=== PATIENT | female | born 1965 | race Caucasian/White ===

== ENCOUNTER → 2019-04-13 | Outpatient (CLI) | payer MEDICAID ==
--- NOTE | 2019-04-14 09:14 | MM ---
Reason for exam: screening (asymptomatic). Last mammogram was performed 2 years and 4 months ago. History: Patient is postmenopausal and has history of high-risk lesion on a previous biopsy at age 47. Family history of breast cancer in paternal aunt at age 50 and breast cancer in paternal grandmother at age 50. High risk US LT VAD breast biopsy of the left breast, April 27, 2013. Benign left breast aspiration of the left breast, March 2012. Took hormonal contraceptives for 15 years beginning at age 17. Physical Findings: A clinical breast exam by your physician is recommended on an annual basis and results should be correlated with mammographic findings. MG 3D Screening Mammo W/Cad Bilateral CC and MLO view(s) were taken. Prior study comparison: December 23, 2016, mammogram, performed at [facility]. April 14, 2014, bilateral MG screening mammo w CAD. April 13, 2013, CAD bilateral diagnostic mammogram. The breast tissue is extremely dense which could obscure a lesion on mammography. Benign appearing bilateral calcifications. No suspicious abnormality. No significant changes when compared with prior studies. ASSESSMENT: Benign, BI-RAD 2 RECOMMENDATION: Routine screening mammogram of both breasts in 1 year.
== END | disposition home or self-care (01) ==
LOC: RADMAMWWP 11:37
PROVIDERS: ATTEND Obstetrics & Gynecology
DX: Z12.31 Encounter for screening mammogram for malignant neoplasm of breast (principal); Z80.3 Family history of malignant neoplasm of breast
CPT/HCPCS: 77063; 77067

== ENCOUNTER → 2019-04-14 | Outpatient (CLI) | payer MEDICAID ==
[2019-04-14 12:18] LABS: T4, Free (Free Thyroxine) 1.2 ng/dL (0.80-1.80)
[2019-04-14 12:51] LABS: LDL Cholesterol,Calculated 80.4 mg/dL (0.0-131.0); VLDL Calculation 10.6 mg/dL (5.00-40.00)
== END | disposition home or self-care (01) ==
LOC: LABWHC1 07:03
PROVIDERS: ATTEND Obstetrics & Gynecology
DX: R53.83 Other fatigue (principal); R63.5 Abnormal weight gain; N64.52 Nipple discharge; Z78.0 Asymptomatic menopausal state
CPT/HCPCS: 36415; 80061; 82947; 84146; 84439; 84443

== ENCOUNTER → 2019-06-06 | Outpatient (CLI) | payer MEDICAID ==
--- NOTE | 2019-06-07 07:16 | MR ---
EXAMINATION TYPE: MR hip RT wo con DATE OF EXAM: 06/06/2019 COMPARISON: Outside right hip March 07, 2019. HISTORY: Right hip pain per order. Pain and limited movement increasing in severity when walking for 2 years per patient. Standard multiplanar, multisequence MRI departmental protocol Multiplanar, multisequence images of the pelvis focusing on the right hip were acquired. FINDINGS: There is symmetric mild to moderate axial joint space loss with symmetric small to moderate -sized joint effusion seen bilaterally. Femoral head shapes are maintained bilaterally. Mild symmetri c spurring is seen. Bone marrow signal intensity is preserved without suspicious edema or serpiginous low T1 signal in either femoral head. There is some increased fluid signal along the greater trochan ters bilaterally. No suspicious groin hernia or adenopathy is seen bilaterally. Muscle bulk is mainta ined bilaterally. Uterus is surgically absent or markedly atrophic. No suspicious bowel dilatation or pelvic fluid vince ection. IMPRESSION: Mild to moderate degenerative changes right hip as detailed above fairly symmetric in allan earance to the opposite left hip.
== END | disposition home or self-care (01) ==
LOC: RADMRIMAIN 16:32
PROVIDERS: ATTEND Orthopaedic Surgery
DX: M16.11 Unilateral primary osteoarthritis, right hip (principal)

== ENCOUNTER 2019-11-04 17:33 | Emergency (ER) | payer MEDICAID, OTHER ==
[2019-11-04 17:39] VITALS: RESP 18; TEMP 97.7
--- NOTE | 2019-11-04 18:26 | XR ---
EXAMINATION TYPE: XR wrist complete LT DATE OF EXAM: 11/04/2019 COMPARISON: NONE HISTORY: Pain TECHNIQUE: 4 views FINDINGS: Carpal bones appear intact. I see no fracture nor dislocation. Joint spaces appear normal. Scaphoid is intact. Metacarpals are intact. IMPRESSION: Negative left wrist exam.
--- NOTE | 2019-11-04 18:59 | ED ---
Fall HPI - General Chief Complaint: Fall Stated Complaint: Fall,Wrist Injury Time Seen by Provider: 11/04/19 17:41 Source: patient Mode of arrival: ambulatory - History of Present Illness Initial Comments: Patient is a 54-year-old female presenting to the emergency Department with complaints of left wrist pain as well as mouth pain after tripping and falling just prior to arrival. Patient states she was walking out to her car and tripped on a piece of sidewalk falling forward. Patient states she put out her left wrist to break her fall and she also hit her chin, bottom lip as well as her front teeth. Patient denies having a headache, nausea, vomiting, blurry vision. Patient denies previous history of left wrist surgeries or trauma. Patient is also complaining of mild left knee pain. Patient is able to ambulate well. Patient has no other complaints at this time. Upon arrival to the ER, vital signs are stable. - Related Data Home Medications Medication Instructions Recorded Confirmed Biotin (Unknown Dose) 1 tab PO DAILY 11/04/19 11/04/19 Co Q-10 (Unknown Dose) 1 tab PO DAILY 11/04/19 11/04/19 Omeprazole (Unknown Dose) 1 tab PO DAILY 11/04/19 11/04/19 Allergies Allergy/AdvReac Type Severity Reaction Status Date / Time erythromycin base Allergy Rash/Hives Verified 11/04/19 17:40 [From [facility]] Review of Systems ROS Statement: Those systems with pertinent positive or pertinent negative responses have been documented in the HPI. ROS Other: All systems not noted in ROS Statement are negative. Past Medical History Past Medical History: GERD/Reflux Additional Past Medical History / Comment(s): IBS, migraines. History of Any Multi-Drug Resistant Organisms: MRSA Date of last positivie culture/infection: 06/09 MDRO Source:: Forehead Past Surgical History: Breast Surgery, Section, Cholecystectomy, Hysterectomy, Tubal Ligation Additional Past Surgical History / Comment(s): Breast biopsy. Past Anesthesia/Blood Transfusion Reactions: Motion Sickness, Postoperative Nausea & Vomiting (PONV) Past Psychological History: No Psychological Hx Reported Smoking Status: Former smoker Past Alcohol Use History: Occasional Past Drug Use History: None Reported - Past Family History Mother Family Medical History: No Reported History General Exam - General Exam Comments Initial Comments: GENERAL: Well-appearing, well-nourished and in no acute distress. HEAD: Atraumatic, normocephalic. EYES: Pupils equal round and reactive to light, extraocular movements intact, sclera anicteric, conjunctiva are normal. ENT: TMs normal, nares patent, oropharynx clear without exudates. Moist mucous membranes. There is a mild abrasion to the chin. A small laceration to the bottom lip. There is some mild swelling of the upper lip. The upper teeth feel firm in place. NECK: Normal range of motion, supple without lymphadenopathy or JVD. LUNGS: Breath sounds clear to auscultation bilaterally and equal. No wheezes rales or rhonchi. HEART: Regular rate and rhythm without murmurs, rubs or gallops. ABDOMEN: Soft, nontender, normoactive bowel sounds. No guarding, no rebound. No masses appreciated. : Deferred EXTREMITIES: Pain with palpation of the left wrist. Patient has slightly decreased range of motion in all directions from pain. There is no swelling present. Neurova scular intact. Patient also has a mild abrasion to the left anterior knee. Patient has full knee range of motion and normal ambulation. NEUROLOGICAL: Normal speech, normal gait. PSYCH: Normal mood, normal affect. SKIN: Warm, Dry, normal turgor. Limitations: no limitations Course Vital Signs 11/04/19 11/04/19 17:33 19:16 Temperature 97.7 F Pulse Rate 82 64 Respiratory 18 18 Rate Blood Pressure 178/106 144/73 O2 Sat by Pulse 98 98 Oximetry Medical Decision Making - Medical Decision Making Patient is a 54-year-old female presenting with left wrist pain and mouth pain after falling on cement prior to arrival. X-rays of the left wrist reveal no acute fractures dislocations. Patient does have a superficial laceration to the bottom lip that is not requiring sutures. I discussed these findings with patient. Patient is stable for discharge at this time. Patient will take Tylenol or Motrin for pain relief. Patient will also follow-up with her dentist concerning her mouth pain. She is agreement with this plan of care. Return parameters were discussed with the patient she verbalized understanding. Case discussed with Dr. Patterson. Disposition Clinical Impression: Fall, Left wrist pain, Mouth pain Disposition: HOME SELF-CARE Condition: Stable Instructions (If sedation given, give patient instructions): Wrist Sprain (ED) Additional Instructions: Please return to the Emergency Department if symptoms worsen or any other concerns. Follow-up with PCP if left wrist does not improve for reevaluation in one to 2 weeks. May take Tylenol or Motrin for symptom relief. Follow-up with dentist regarding teeth pain. Is patient prescribed a controlled substance at d/c from ED?: No Referrals: Stefan Cantrell MD [Primary Care Provider] - 1-2 days
[2019-11-04 19:18] VITALS: BP 144/73; PULSE 64
== END 2019-11-04 19:18 | disposition home or self-care (01) ==
LOC: EC 17:33
DX: M25.532 Pain in left wrist (principal); S01.511A Laceration without foreign body of lip, initial encounter; S80.212A Abrasion, left knee, initial encounter; S00.81XA Abrasion of other part of head, initial encounter; K21.9 Gastro-esophageal reflux disease without esophagitis; K58.9 Irritable bowel syndrome, unspecified; Z87.891 Personal history of nicotine dependence; Z88.1 Allergy status to other antibiotic agents; Z79.899 Other long term (current) drug therapy; Z86.14 Personal history of Methicillin resistant Staphylococcus aureus infection; W01.0XXA Fall on same level from slipping, tripping and stumbling without subsequent striking against object, initial encounter; Y93.01 Activity, walking, marching and hiking; Y92.480 Sidewalk as the place of occurrence of the external cause; Y92.89 Other specified places as the place of occurrence of the external cause
CPT/HCPCS: 99283

== ENCOUNTER 2019-11-07 10:30 | Day surgery (SDC) | payer MEDICAID ==
[2019-11-04 11:34] VITALS: BMI 25.0
[~2019-11-07 10:30] MED LIST: LACTATED RINGERS 1,000 ML IV SCH
[2019-11-07 10:53] VITALS: TEMP 97.5
[2019-11-07] MEDS ORDERED: LIDOCAINE 1% 20 ML VIAL (10MG/ML) FOR IV START INTRADERMA ONE (10:54)
[2019-11-07] MEDS ORDERED: PROPOFOL 10 MG/ML 20 ML VIAL IV ONE (11:38)
[2019-11-07] MEDS ORDERED: SODIUM CHLORIDE 0.9% 500 ML 500 ML IV ONE (12:17)
--- NOTE | 2019-11-07 12:20 | P.PCN ---
Date of Procedure: 11/07/19 Description of Procedure: Brief history: Patient is a pleasant scheduled for an elective upper endoscopy as well as colonoscopy as a part of evaluation of GERD and change in bowel habits. She reports last colonoscopy approximately 10 years ago. Family history of ulcerative colitis in her mother. Reports of reflux as well as altered bowel function with frequent loose stool alternating with constipation. Procedure performed: Esophagogastroduodenoscopy with biopsy Colonoscopy with biopsy and polypectomy Estimated blood loss: Minimal. Preoperative diagnosis: GERD, change in bowel habits, Last colonoscopy in 10 years ago Anesthesia: MAC Procedure: After informed consent was obtained from the patient was brought into the endoscopy unit and IV sedation was administered by anesthesia under continuous monitoring. Initially upper endoscopy was done. The Olympus GF 190 video endoscope was inserted into the mouth and esophagus intubated without any difficulty and was gradually advanced into the stomach and duodenum and carefully examined. The bulb and second part of the duodenum appeared normal, With biopsies taken to rule out celiac sprue. The scope was then withdrawn into the stomach adequately insufflated with air and upon careful examination the antrum and body, cardia and fundus appeared normal, except for some mild punctate erythema in the antrum and body suggestive of mild gastritis with biopsies taken. The scope was then withdrawn into the esophagus. The GE junction was located at 35 cm to the incisors, with a 3 cm hiatal hernia noted. It appeared regular with no erythema erosions or ulcerations. Rest of the esophagus appeared normal. Patient tolerated the procedure well. At this time the patient continued to remain sedation. Initial digital rectal examination was normal. Olympus CF 190 video colonoscope was then inserted into the rectum and gradually advanced to the cecum without any difficulty. Careful examination was performed as the scope was gradually being withdrawn. The prep was excellent. The cecum, ascending colon, transverse colon, descending colon, sigmoid colon and rectum appeared normal, with biopsies taken of the right and left colon in the setting of altered bowel function. Terminal ileum was intubated and appeared normal with biopsies taken. Diminutive 2 mm splenic flexure polyp removed with cold forceps. Diminutive 2 mm sigmoid colon polyp removed with cold forcep polypectomy. Retroflexion was performed in the rectum and no lesions were noted, with moderate internal hemorrhoids noted. Patient tolerated the procedure well. Impression: 1. Mild gastritis antrum and body, biopsied. Moderate size hiatal hernia. Biopsies of the duodenum. 2. Diminutive splenic flexure and sigmoid polyps removed with cold forceps. Moderate internal hemorrhoids. Random biopsies taken of the terminal ileum, rig ht colon and left colon in the setting of altered bowel function. Recommendations: Findings of this examination were discussed with the patient as well as her family. Okay to resume diet. Okay to resume medications. Await pathology from biopsies and polypectomy. Recommend repeat colonoscopy in 5 years pending pathology from polypectomies.
[2019-11-07 12:40] VITALS: BP 120/78; PULSE 65; RESP 17
== END 2019-11-07 13:22 | disposition home or self-care (01) ==
LOC: ORWHC2ENDO 10:30
PROVIDERS: ATTEND Internal Medicine
DX: K21.9 Gastro-esophageal reflux disease without esophagitis (principal); K44.9 Diaphragmatic hernia without obstruction or gangrene; D12.5 Benign neoplasm of sigmoid colon; D12.3 Benign neoplasm of transverse colon; K64.8 Other hemorrhoids; G43.909 Migraine, unspecified, not intractable, without status migrainosus; K08.89 Other specified disorders of teeth and supporting structures; K58.9 Irritable bowel syndrome, unspecified; Z88.1 Allergy status to other antibiotic agents; Z79.899 Other long term (current) drug therapy; Z87.898 Personal history of other specified conditions; Z87.891 Personal history of nicotine dependence; Z98.890 Other specified postprocedural states; Z90.710 Acquired absence of both cervix and uterus; Z90.49 Acquired absence of other specified parts of digestive tract; Z83.79 Family history of other diseases of the digestive system
CPT/HCPCS: 88305; 45380; 43239; J2704

== ENCOUNTER → 2020-05-03 | Outpatient (CLI) | payer MEDICAID ==
--- NOTE | 2020-05-08 11:03 | MM ---
Reason for exam: screening (asymptomatic). Last mammogram was performed 1 year and 1 month ago. History: Patient is postmenopausal and has history of high-risk lesion on a previous biopsy at age 47. Family history of breast cancer in paternal aunt at age 50 and breast cancer in paternal grandmother at age 50. High risk US LT VAD breast biopsy of the left breast, April 27, 2013. Benign left breast aspiration of the left breast, March 2012. Took hormonal contraceptives for 15 years beginning at age 17. Physical Findings: A clinical breast exam by your physician is recommended on an annual basis and results should be correlated with mammographic findings. MG 3D Screening Mammo W/Cad Bilateral CC and MLO view(s) were taken. Prior study comparison: April 13, 2019, bilateral MG 3d screening mammo w/cad. December 23, 2016, mammogram, performed at [facility]. The breast tissue is heterogeneously dense. This may lower the sensitivity of mammography. Stable diffuse bilateral punctate calcifications. Oil cyst calcifications on the right. No significant changes when compared with prior studies. ASSESSMENT: Benign, BI-RAD 2 RECOMMENDATION: Routine screening mammogram of both breasts in 1 year.
== END | disposition home or self-care (01) ==
LOC: RADMAMWWP 08:21
PROVIDERS: ATTEND Obstetrics & Gynecology
DX: Z12.31 Encounter for screening mammogram for malignant neoplasm of breast (principal); Z80.3 Family history of malignant neoplasm of breast
CPT/HCPCS: 77063; 77067

== ENCOUNTER → 2021-03-28 | Outpatient (CLI) | payer MEDICAID ==
[2021-03-28 11:16] LABS: Chol/HDL Ratio 2.45
[2021-03-28 11:17] LABS: African American GFR (CKD) 82.8 (60.0-200.0); Albumin 4.9 g/dL (3.80-4.90); Albumin/Globulin Ratio 2.58 (1.60-3.17); Anion Gap 8.5 mmol/L (4.00-12.00); BUN/Creat Ratio 17.78 Ratio (12.00-20.00); Calcium 9.9 mg/dL (8.7-10.3); Carbon Dioxide 28.5 mmol/L (21.6-31.8); Globulin 1.9 g/dL (1.6-3.3); Non-African American GFR(CKD) 71.5 (60.0-200.0); Potassium 4.4 mmol/L (3.5-5.5); Total Bilirubin 0.8 mg/dL (0.2-1.2); Total Protein 6.8 g/dL (6.2-8.2)
[2021-03-28 13:21] LABS: Basophils # (A) 0.04 X 10*3/uL (0.00-0.10); Basophils % (A) 0.5 %; Eosinophils # (A) 0.18 X 10*3/uL (0.04-0.35); Eosinophils % (A) 2.2 %; HCT 43.8 % (37.2-46.3); HGB 14.7 g/dL (12.0-15.0); Lymphocytes # (A) 2.36 X 10*3/uL (0.90-5.00); Lymphocytes % (A) 28.3 %; MCHC 33.6 g/dL (32.0-37.0); MCV 95.2 fL (80.0-97.0); Monocytes # (A) 0.55 X 10*3/uL (0.20-1.00); Monocytes % (A) 6.6 %; Neutrophils # (A) 5.21 X 10*3/uL (1.80-7.70); Neutrophils % (A) 62.3 %; Platelet Count 301 X 10*3/uL (140-440); WBC 8.35 X 10*3/uL (4.50-10.00)
== END | disposition home or self-care (01) ==
LOC: LABWHC1 06:55
PROVIDERS: ATTEND Nurse Practitioner Adult Health
DX: Z00.00 Encounter for general adult medical examination without abnormal findings (principal); K21.9 Gastro-esophageal reflux disease without esophagitis; G47.00 Insomnia, unspecified; N95.1 Menopausal and female climacteric states; G43.009 Migraine without aura, not intractable, without status migrainosus
CPT/HCPCS: 36415; 80053; 80061; 82306; 82607; 84443; 85025

== ENCOUNTER 2021-05-20 07:40 | Observation (INO) | payer MEDICAID ==
[2021-05-20] MEDS ORDERED: NITROGLYCERIN OINT 1 INCH/GM PACKET TOPICAL STA (08:03)
[2021-05-20] MEDS ORDERED: ASPIRIN 81 MG PO STA (08:03)
--- NOTE | 2021-05-20 08:07 | ED ---
General Adult HPI - General Chief complaint: Chest Pain Stated complaint: Chest Pain Time Seen by Provider: 05/20/21 07:58 Source: patient, RN notes reviewed Mode of arrival: ambulatory Limitations: no limitations - History of Present Illness Initial comments: Patient is a pleasant 55-year-old female presenting to the emergency Department with complaints of chest heaviness. Onset of symptoms was close to 2 weeks ago. Discomfort has been mild. Patient does have occasional palpitations. Patient feels nauseated this morning. No dyspnea. No history of similar symptoms previously. A whalen states symptoms are not necessarily exertional. No leg pain or leg swelling. - Related Data Home Medications Medication Instructions Recorded Confirmed ALPRAZolam [Xanax] 0.25 - 0.5 mg PO HS PRN 05/20/21 05/20/21 Eletriptan [Relpax] 40 mg PO DAILY PRN 05/20/21 05/20/21 Omeprazole 20 mg PO HS 05/20/21 05/20/21 Allergies Allergy/AdvReac Type Severity Reaction Status Date / Time erythromycin base Allergy Rash/Hives Verified 05/20/21 09:09 [From [facility]] Review of Systems ROS Statement: Those systems with pertinent positive or pertinent negative responses have been documented in the HPI. ROS Other: All systems not noted in ROS Statement are negative. Constitutional: Denies: fever Eyes: Denies: eye pain ENT: Denies: ear pain Respiratory: Denies: cough, dyspnea Cardiovascular: Reports: as per HPI, chest pain, palpitations Endocrine: Denies: fatigue Gastrointestinal: Reports: nausea. Denies: abdominal pain, vomiting Genitourinary: Denies: dysuria Musculoskeletal: Denies: back pain Skin: Denies: rash Neurological: Denies: weakness Past Medical History Past Medical History: GERD/Reflux Additional Past Medical History / Comment(s): IBS, migraines. History of Any Multi-Drug Resistant Organisms: MRSA Date of last positivie culture/infection: 06/09 MDRO Source:: Forehead Past Surgical History: Breast Surgery, Section, Cholecystectomy, Hysterectomy, Tubal Ligation Additional Past Surgical History / Comment(s): Breast biopsy. Past Anesthesia/Blood Transfusion Reactions: Motion Sickness, Postoperative Nausea & Vomiting (PONV) Past Psychological History: No Psychological Hx Reported Smoking Status: Former smoker Past Alcohol Use History: Rare Past Drug Use History: None Reported - Past Family History Mother Family Medical History: No Reported History General Exam Limitations: no limitations General appearance: alert, in no apparent distress Head exam: Present: normocephalic Eye exam: Present: normal appearance Neck exam: Present: normal inspection Respiratory exam: Present: normal lung sounds bilaterally Cardiovascular Exam: Present: regular rate, normal rhythm, normal heart sounds, other (Occasional premature beat) Expanded Peripheral pulses: 2+: Radial (R), Radial (L), Posterior Tibialis (R), Posterior Tibialis (L) GI/Abdominal exam: Present: soft. Absent: tenderness Extremities exam: Present: normal inspection. Absent: pedal edema, calf tenderness Neurological exam: Present: alert Psychiatric exam: Present: normal affect, normal mood Skin exam: Present: normal color Course Vital Signs 05/20/21 05/20/21 07:43 08:47 Temperature 97.5 F L Pulse Rate 74 60 Respiratory 18 18 Rate Blood Pressure 151/75 121/77 O2 Sat by Pulse 100 96 Oximetry - Reevaluation(s) Reevaluation #1: 05/20/21 08:06 Monitor shows normal sinus rhythm with occasional PVCs. Patient is placed on monitored who evaluate for potential arrhythmia the patient with palpitations and chest pain. Patient does have PVCs that correlate with her symptoms of palpitations. EKG Findings - EKG Comments: EKG Findings:: Normal sinus rhythm with rate of 66. PVC present. ID 168. QRS 84. QT 390. QTC 408. Normal axis. Septal Q waves. No acute ST change. Medical Decision Making - Medical Decision Making Patient reevaluated and resting comfortably in bed. Patient updated on results and plan. Case was discussed with Dr. Obrien, covering Dr. chavez who will admit. - Lab Data Result diagrams: 05/20/21 08:12 05/20/21 08:12 Lab Results 05/20/21 05/20/21 05/20/21 Range/Units 08:12 08:12 08:12 WBC 7.3 (3.8-10.6) k/uL RBC 4.43 (3.80-5.40) m/uL Hgb 14.1 (11.4-16.0) gm/dL Hct 40.7 (34.0-46.0) % MCV 92.0 (80.0-100.0) fL MCH 31.8 (25.0-35.0) pg MCHC 34.6 (31.0-37.0) g/dL RDW 12.4 (11.5-15.5) % Plt Count 280 (150-450) k/uL MPV 7.6 Neutrophils % 64 % Lymphocytes % 29 % Monocytes % 4 % Eosinophils % 1 % Basophils % 1 % Neutrophils # 4.7 (1.3-7.7) k/uL Lymphocytes # 2.1 (1.0-4.8) k/uL Monocytes # 0.3 (0-1.0) k/uL Eosinophils # 0.1 (0-0.7) k/uL Basophils # 0.0 (0-0.2) k/uL PT 9.9 (9.0-12.0) sec INR 0.9 (<1.2) APTT 24.0 (22.0-30.0) sec Sodium 142 (137-145) mmol/L Potassium 4.0 (3.5-5.1) mmol/L Chloride 107 (98-107) mmol/L Carbon Dioxide 26 (22-30) mmol/L Anion Gap 9 mmol/L BUN 11 (7-17) mg/dL Creatinine 0.65 (0.52-1.04) mg/dL Est GFR (CKD-EPI)AfAm >90 (>60 ml/min/1.73 sqM) Est GFR (CKD-EPI)NonAf >90 (>60 ml/min/1.73 sqM) Glucose 93 (74-99) mg/dL Calcium 9.9 (8.4-10.2) mg/dL Magnesium 2.0 (1.6-2.3) mg/dL Total Bilirubin 0.5 (0.2-1.3) mg/dL AST 22 (14-36) U/L ALT 16 (4-34) U/L Alkaline Phosphatase 81 (38-126) U/L Troponin I (0.000-0.034) ng/mL Total Protein 7.0 (6.3-8.2) g/dL Albumin 4.6 (3.5-5.0) g/dL 05/20/21 Range/Units 08:12 WBC (3.8-10.6) k/uL RBC (3.80-5.40) m/uL Hgb (11.4-16.0) gm/dL Hct (34.0-46.0) % MCV (80.0-100.0) fL MCH (25.0-35.0) pg MCHC (31.0-37.0) g/dL RDW (11.5-15.5) % Plt Count (150-450) k/uL MPV Neutrophils % % Lymphocytes % % Monocytes % % Eosinophils % % Basophils % % Neutrophils # (1.3-7.7) k/uL Lymphocytes # (1.0-4.8) k/uL Monocytes # (0-1.0) k/uL Eosinophils # (0-0.7) k/uL Basophils # (0-0.2) k/uL PT (9.0-12.0) sec INR (<1.2) APTT (22.0-30.0) sec Sodium (137-145) mmol/L Potassium (3.5-5.1) mmol/L Chloride (98-107) mmol/L Carbon Dioxide (22-30) mmol/L Anion Gap mmol/L BUN (7-17) mg/dL Creatinine (0.52-1.04) mg/dL Est GFR (CKD-EPI)AfAm (>60 ml/min/1.73 sqM) Est GFR (CKD-EPI)NonAf (>60 ml/min/1.73 sqM) Glucose (74-99) mg/dL Calcium (8.4-10.2) mg/dL Magnesium (1.6-2.3) mg/dL Total Bilirubin (0.2-1.3) mg/dL AST (14-36) U/L ALT (4-34) U/L Alkaline Phosphatase (38-126) U/L Troponin I <0.012 (0.000-0.034) ng/mL Total Protein (6.3-8.2) g/dL Albumin (3.5-5.0) g/dL - Radiology Data Radiology results: image reviewed (Chest x-ray reveals no acute) Disposition Clinical Impression: Chest pain Disposition: ADMITTED IP TO THIS [facility] Is patient prescribed a controlled substance at d/c from ED?: No Referrals: Trisha Moreno NPC [Family Provider] - 1-2 days Decision Time: 09:16
[2021-05-20 08:29] LABS: Basophils % (A) 1 %; Eosinophils # (A) 0.1 k/uL (0-0.7); Eosinophils % (A) 1 %; HCT 40.7 % (34.0-46.0); HGB 14.1 gm/dL (11.4-16.0); Lymphocytes # (A) 2.1 k/uL (1.0-4.8); Lymphocytes % (A) 29 %; MCH 31.8 pg (25.0-35.0); MCHC 34.6 g/dL (31.0-37.0); Mean Platelet Volume 7.6; Monocytes # (A) 0.3 k/uL (0-1.0); Monocytes % (A) 4 %; Neutrophils # (A) 4.7 k/uL (1.3-7.7); Neutrophils % (A) 64 %; Platelet Count 280 k/uL (150-450); RBC 4.43 m/uL (3.80-5.40); RDW 12.4 % (11.5-15.5); WBC 7.3 k/uL (3.8-10.6)
[2021-05-20 08:35] LABS: INR 0.9 (<1.2); Prothrombin Time 9.9 sec (9.0-12.0)
[2021-05-20 08:37] LABS: ALT 16 U/L (4-34); AST 22 U/L (14-36); African American GFR (CKD) >90 (>60 ml/min/1.73 sqM); Albumin 4.6 g/dL (3.5-5.0); Alkaline Phosphatase 81 U/L (38-126); Anion Gap 9 mmol/L; Blood Urea Nitrogen 11 mg/dL (7-17); Calcium 9.9 mg/dL (8.4-10.2); Carbon Dioxide 26 mmol/L (22-30); Chloride 107 mmol/L (98-107); Glucose 93 mg/dL (74-99); Non-African American GFR(CKD) >90 (>60 ml/min/1.73 sqM); Sodium 142 mmol/L (137-145); Total Bilirubin 0.5 mg/dL (0.2-1.3)
--- NOTE | 2021-05-20 08:41 | XR ---
EXAMINATION TYPE: XR chest 2V DATE OF EXAM: 05/20/2021 COMPARISON: NONE TECHNIQUE: PA and lateral views submitted. HISTORY: Chest FINDINGS: The lungs are clear and there is no pneumothorax, pleural effusion, or focal pneumonia. Heart size normal. No overt failure. Biapical pleural thickening. Mild hyperinflation. Degenerative change of th e spine. IMPRESSION: 1. No acute process. Mild hyperinflation correlate for COPD.
[2021-05-20] MEDS ORDERED: NITROGLYCERIN SL TABS 0.4 MG TAB SUBLINGUAL PRN (09:16)
[2021-05-20] MEDS ORDERED: ACETAMINOPHEN TAB 325 MG TAB PO PRN (10:57)
[2021-05-20] MEDS ORDERED: NALOXONE 0.4 MG/ML 1 ML VIAL IV PRN (10:57)
--- NOTE | 2021-05-20 11:00 | P.HPIM ---
History of Present Illness H&P Date: 05/20/21 Chief Complaint: palpitations, chest pressure 55-year-old woman with no significant medical history outside of acid reflux presented with palpitations and chest heaviness. Patient says her symptoms started approximately 2 weeks ago, but as of yesterday she started to feel a dditional chest discomfort as well as some radiation into the left upper shoulder and down the arm which prompted her concern and her medical evaluation in the ER. Patient says that's she has had some nausea associated with the symptoms. She denies any exertional chest pain, positional chest pain, prandial relationship to the chest pain. She describes her sensation as a pressure in the center of her chest. She has never had any heart attacks before. She also reports that she has feelings as if her heart is skipping beats. She denies fevers, chills, cough, dyspnea, abdominal pain, diarrhea, constipation, dysuria, numbness/as. In the emergency room, patient was noted to be afebrile, 121/77, heart rate 60, 96% room air. EKG and telemetry demonstrated multiple PVCs, no ischemic changes to the ST-T segments. Review of Systems All Systems reviewed and pertinent positives and negatives noted in HPI, all other symptoms are negative Past Medical History Past Medical History: GERD/Reflux Additional Past Medical History / Comment(s): IBS, migraines. History of Any Multi-Drug Resistant Organisms: MRSA Date of last positivie culture/infection: 06/09 MDRO Source:: Forehead Past Surgical History: Breast Surgery, Section, Cholecystectomy, Hysterectomy, Tubal Ligation Additional Past Surgical History / Comment(s): Breast biopsy. Past Anesthesia/Blood Transfusion Reactions: Motion Sickness, Postoperative Nausea & Vomiting (PONV) Past Psychological History: No Psychological Hx Reported Smoking Status: Former smoker Past Alcohol Use History: Rare Past Drug Use History: None Reported - Past Family History Mother Family Medical History: No Reported History Medications and Allergies Home Medications Medication Instructions Recorded Confirmed Type ALPRAZolam [Xanax] 0.25 - 0.5 mg PO HS PRN 05/20/21 05/20/21 History Eletriptan [Relpax] 40 mg PO DAILY PRN 05/20/21 05/20/21 History Omeprazole 20 mg PO HS 05/20/21 05/20/21 History Allergies Allergy/AdvReac Type Severity Reaction Status Date / Time erythromycin base Allergy Rash/Hives Verified 05/20/21 09:09 [From [facility]] Physical Exam Osteopathic Statement: *. No significant issues noted on an osteopathic structural exam other than those noted in the History and Physical/Consult. Vitals: Vital Signs Temp Pulse Resp BP Pulse Ox 05/20/21 08:47 60 18 121/77 96 05/20/21 07:43 97.5 F L 74 18 151/75 100 Intake and Output 05/19/21 05/20/21 05/20/21 22:59 06:59 14:59 Other: Weight 72.575 kg Gen: awake, alert HEENT: normocephalic, atraumatic, good hearing acuity, moist mucous membranes Resp: good air exchange, breathing comfortably with no accessory muscle use, clear to auscultation bilaterally without wheezes or crackles CVS: good distal perfusion x 4, regular rate and rhythm without murmurs, occasional skipped beats GI: soft, NTTP, ND, appropriate bowel sounds : no SPT, no CVAT, riojas catheter not present MSK: no pitting edema, no clubbing Neuro: non-focal, moving all extremities Psych: cooperative, euthymic mood Results CBC & Chem 7: 05/20/21 08:12 05/20/21 08:12 Assessment and Plan Assessment: Chest pain, atypical Premature ventricular contractions -Admit to observation, telemetry -Cardiology consult -Trend troponins -EKG/nitro when necessary -Echo, pending -Initiate metoprolol 12.5 mg twice a day -Aspirin daily for primary prophylaxis -Lipid panel, A1c, TSH -We'll hold off on starting statin based on lab work GERD without esophagitis -Tums when necessary Enoxaparin for DVT PPx Full Code
[2021-05-20] MEDS: NITROGLYCERIN OINT 1 INCH/GM PACKET TOPICAL SCH ×3 (13:03→23:01)
--- NOTE | 2021-05-20 14:09 | P.CRDCN ---
History of Present Illness History of present illness: HISTORY OF PRESENTING ILLNESS This is a pleasant 55-year-old female past medical history significant for GERD. 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 We have been asked to see in consultat ion for chest pain. Patient states that over the past 2 weeks has been having a "fluttering chest pain feeling". She states it is located in the center of her chest, it is nonradiating, nonexertional. She states it comes and goes and lasts less than 5 minutes. She denies any aggravating factors or alleviating factors. She states sometimes she does feel like she has to rest. Over the past 2 days her symptoms have been getting worse so she decided to present to the emergency department. She does have associated shortness of breath. She denies lower extremity edema, fatigue, weakness, lightheadedness, syncope, nausea, or vomiting, or diaphoresis. She denies symptoms of orthopnea or PND. She denies history of coronary artery disease, [place], hypertension, stroke, diabetes, hyperlipidemia. She states that she was a former smoker and quit 2 years ago. She denies alcohol or illicit drug use. Her family history includes her parents having high blood pressure and she states that her mother was diagnosed with Takotsubo cardiomyopathy. Current home medications include Xanax when necessary, Relpax when necessary, omeprazole 20 mg nightly DIAGNOSTICS EKG reveals sinus rhythm, heart rate 66, PVCs, no significant STT wave abnormalities Chest xray mild hyperinflation, no acute cardiopulmonary process.. Laboratory reviewed, CBC unremarkable, Sodium 142, K 4.0, BUN 11, Scr 0.65, Magnesium 2.0, Troponin negative x2, covid-19 negative REVIEW OF SYSTEMS At the time of my exam: CONSTITUTIONAL: Denies fever or chills. CARDIOVASCULAR: +chest pain, +palpitations, shortness of breath, orthopnea, PND RESPIRATORY: Denies cough. GASTROINTESTINAL: Denies abdominal pain, diarrhea, constipation, nausea or vomiting. MUSCULOSKELETAL: Denies myalgias. NEUROLOGIC: Denies numbness, tingling, headacbe or weakness. ENDOCRINE: Denies fatigue, weight change, polydipsia or polyurina. GENITOURINARY: Denies burning, hematuria or urgency with micturation. HEMATOLOGIC: Denies history of anemia or bleeding. PHYSICAL EXAMINATION Blood pressure 109/70 heart rate 63 afebrile and maintaining oxygen saturation 96% on room air CONSTITUTIONAL: No apparent distress. HEENT: Head is normocephalic. Pupils are equal, round. Sclerae anicteric. Mucous membranes of the mouth are moist. No JVD. No carotid bruit. CHEST EXAMINATION: Lungs are clear to auscultation. No chest wall tenderness is noted on palpation or with deep breathing. HEART EXAMINATION: Regular rate and rhythm. S1, S2 heard. No murmurs, gallops or rub. ABDOMEN: Soft, nontender. Positive bowel sounds. EXTREMITIES: 2+ peripheral pulses, no lower extremity edema and no calf tenderness. SKIN: intact NEUROLOGIC EXAMINATION: Patient is awake, alert and oriented x3. ASSESSMENT Chest pain, atypical, no ischemia noted on EKG, troponin negative x 2. History of GERD PLAN An acute coronary event is unlikely given no EKG evidence of ischemia and negative cardiac enzymes x 2 Obtain 2D echocardiogram and doppler study to assess cardiac structure and function. If 3rd troponin negative, will Perform stress echocardiogram test to assess for stress induced cardiac ischemia. If abnormal will consider coronary angiography. NPO after midnight Lipid panel, TSH and hemoglobin A1c ordered Further recommendations based on clinical course. Thank you kindly for this consultation. Nurse Practitioner note has been reviewed, I agree with a documented findings and plan of care. Patient was seen and examined. Past Medical History Past Medical History: GERD/Reflux Additional Past Medical History / Comment(s): Hiatal hernia, IBS, migraines History of Any Multi-Drug Resistant Organisms: MRSA Date of last positivie culture/infection: 06/09 MDRO Source:: Forehead Past Surgical History: Breast Surgery, Section, Cholecystectomy, Hysterectomy, Tubal Ligation Additional Past Surgical History / Comment(s): EGD, colonoscopy, endometrial ablation, hysterectomy with L oophorectomy, breast biopsy. Past Anesthesia/Blood Transfusion Reactions: Motion Sickness, Postoperative Nausea & Vomiting (PONV) Smoking Status: Former smoker - Past Family History Mother Family Medical History: COPD Additional Family Medical History / Comment(s): Ulcerative colitis. Father Family Medical History: Hypertension Additional Family Medical History / Comment(s): Pancreatitis. Medications and Allergies Home Medications Medication Instructions Recorded Confirmed Type ALPRAZolam [Xanax] 0.25 - 0.5 mg PO HS PRN 05/20/21 05/20/21 History Eletriptan [Relpax] 40 mg PO DAILY PRN 05/20/21 05/20/21 History Omeprazole 20 mg PO HS 05/20/21 05/20/21 History Allergies Allergy/AdvReac Type Severity Reaction Status Date / Time erythromycin base Allergy Rash/Hives Verified 05/20/21 09:09 [From E-Mycin] Physical Exam Vitals: Vital Signs Temp Pulse Resp BP Pulse Ox 05/20/21 11:17 62 18 101/67 98 05/20/21 11:00 64 18 100/60 96 05/20/21 10:00 64 18 112/77 96 05/20/21 09:00 62 18 113/78 96 05/20/21 08:47 60 18 121/77 96 05/20/21 07:43 97.5 F L 74 18 151/75 100 Intake and Output 05/19/21 05/20/21 05/20/21 22:59 06:59 14:59 Other: Weight 72.575 kg Results 05/20/21 08:12 05/20/21 08:12 Cardiac Enzymes 05/20/21 05/20/21 Range/Units 08:12 08:12 AST 22 (14-36) U/L Troponin I <0.012 (0.000-0.034) ng/mL Coagulation 05/20/21 Range/Units 08:12 PT 9.9 (9.0-12.0) sec APTT 24.0 (22.0-30.0) sec CBC 05/20/21 Range/Units 08:12 WBC 7.3 (3.8-10.6) k/uL RBC 4.43 (3.80-5.40) m/uL Hgb 14.1 (11.4-16.0) gm/dL Hct 40.7 (34.0-46.0) % Plt Count 280 (150-450) k/uL Comprehensive Metabolic Panel 05/20/21 Range/Units 08:12 Sodium 142 (137-145) mmol/L Potassium 4.0 (3.5-5.1) mmol/L Chloride 107 (98-107) mmol/L Carbon Dioxide 26 (22-30) mmol/L BUN 11 (7-17) mg/dL Creatinine 0.65 (0.52-1.04) mg/dL Glucose 93 (74-99) mg/dL Calcium 9.9 (8.4-10.2) mg/dL AST 22 (14-36) U/L ALT 16 (4-34) U/L Alkaline Phosphatase 81 (38-126) U/L Total Protein 7.0 (6.3-8.2) g/dL Albumin 4.6 (3.5-5.0) g/dL Current Medications Generic Name Dose Route Start Last Admin Trade Name Freq PRN Reason Stop Dose Admin Acetaminophen 650 mg 05/20/21 10:57 Acetaminophen Tab 325 Mg Tab PO Q6HR PRN Mild Pain or Fever > 100.5 Aspirin 81 mg 05/21/21 09:00 Aspirin 81 Mg PO DAILY [facility] Enoxaparin Sodium 40 mg 05/21/21 09:00 Enoxaparin 40 Mg/0.4 Ml Syringe SQ DAILY [facility] Metoprolol Tartrate 12.5 mg 05/20/21 21:00 Metoprolol Tartrate 12.5 Mg Tab PO BID [facility] Naloxone HCl 0.2 mg 05/20/21 10:57 Naloxone 0.4 Mg/Ml 1 Ml Vial IV Q2M PRN Opioid Reversal Nitroglycerin 0.4 mg 05/20/21 09:16 Nitroglycerin Sl Tabs 0.4 Mg Tab SUBLINGUAL Q5M PRN Chest Pain Nitroglycerin 1 inch 05/20/21 12:00 Nitroglycerin Oint 1 Inch/Gm Packet TOPICAL Q6HR [facility] Pantoprazole Sodium 40 mg 05/20/21 21:00 Pantoprazole 40 Mg Tablet PO HS [facility] Intake and Output 05/19/21 05/20/21 05/20/21 22:59 06:59 14:59 Other: Weight 72.575 kg Patient Weight 05/21/21 06:59 Weight 72.575 kg 05/20/21 08:12 05/20/21 08:12
[2021-05-20] MEDS ORDERED: ALPRAZolam 0.5 MG TAB PO PRN (16:29)
[2021-05-20] MEDS ORDERED: IBUPROFEN 200 MG TAB PO STA (20:11)
[2021-05-20] MEDS: METOPROLOL TARTRATE 12.5 MG TAB PO SCH (20:57)
[2021-05-20] MEDS ORDERED: PANTOPRAZOLE 40 MG TABLET PO SCH (21:00)
[2021-05-21] MEDS: NITROGLYCERIN OINT 1 INCH/GM PACKET TOPICAL SCH ×2 (06:25→12:25)
[2021-05-21] MEDS ORDERED: ASPIRIN 325 MG TAB PO SCH (09:00)
[2021-05-21] MEDS ORDERED: ENOXAPARIN 40 MG/0.4 ML SYRINGE SQ SCH (09:00)
[2021-05-21] MEDS ORDERED: ASPIRIN 81 MG PO SCH (09:00)
[2021-05-21 09:19] LABS: Basophils # (A) 0.04 X 10*3/uL (0.00-0.10); Basophils % (A) 0.5 %; Eosinophils # (A) 0.14 X 10*3/uL (0.04-0.35); Eosinophils % (A) 1.8 %; HCT 40.2 % (37.2-46.3); HGB 13.6 g/dL (12.0-15.0); Lymphocytes # (A) 2.46 X 10*3/uL (0.90-5.00); Lymphocytes % (A) 32.5 %; MCH 31.9 pg (27.0-32.0); MCHC 33.8 g/dL (32.0-37.0); MCV 94.1 fL (80.0-97.0); Mean Platelet Volume 10.6 fL (9.5-12.2); Monocytes # (A) 0.49 X 10*3/uL (0.20-1.00); Monocytes % (A) 6.5 %; Neutrophils # (A) 4.43 X 10*3/uL (1.80-7.70); Neutrophils % (A) 58.4 %; Platelet Count 258 X 10*3/uL (140-440); RBC 4.27 X 10*6/uL (4.10-5.20); RDW 12.9 % (11.5-14.5); WBC 7.58 X 10*3/uL (4.50-10.00)
[2021-05-21] MEDS: METOPROLOL TARTRATE 12.5 MG TAB PO SCH (10:29)
--- NOTE | 2021-05-21 10:47 | ECHOF ---
Referral Reason:LV function chest pain MEASUREMENTS -------- HEIGHT: 167.6 cm WEIGHT: 72.6 kg BP: RVIDd: 3.1 cm (< 3.3) IVSd: 1.2 cm (0.6 - 1.1) LVIDd: 4.7 cm (3.9 - 5.3) LVPWd: 1.3 cm (0.6 - 1.1) IVSs: 1.5 cm LVIDs: 2.8 cm LVPWs: 1.6 cm LAESV Index (A-L): 25.75 ml/m Ao Diam: 2.8 cm (2.0 - 3.7) AV Cusp: 1.9 cm (1.5 - 2.6) LA Diam: 2.7 cm (2.7 - 3.8) MV E Pool: 0.76 m/s MV DecT: 252 ms MV A Pool: 0.52 m/s MV E/A Ratio: 1.45 FINDINGS -------- Sinus rhythm with extra systolic beats. This was a technically difficult study with suboptimal apical views. The left ventricular size is normal. There is mild concentric left ventricular hypertrophy. Overa ll left ventricular systolic function is low-normal with, an EF between 50 - 55 %. The right ventricle is normal in size. Normal LA size by volume 22+/-6 ml/m2. The right atrial size is normal. 5.0mg of Lumason was utilized for enhancement of images Interatrial and interventricular septum intact. There is mild aortic valve sclerosis. There is no evidence of aortic regurgitation. There is no e vidence of aortic stenosis. No mitral regurgitation. Mild tricuspid regurgitation present. There is no evidence of pulmonary hypertension. The right v entricular systolic pressure, as measured by Doppler, is {RVSP}. There is no pulmonic regurgitation present. The aortic root size is normal. Normal inferior vena cava with normal inspiratory collapse consistent with estimated right atrial pre ssure of 5 mmHg. There is no pericardial effusion. CONCLUSIONS -------- 1. The left ventricular size is normal. 2. There is mild concentric left ventricular hypertrophy. 3. Overall left ventricular systolic function is low-normal with, an EF between 50 - 55 %. 4. There is mild aortic valve sclerosis. 5. Mild tricuspid regurgitation present. SOAKER MEAT: Michelle Alvarez RDCS
--- NOTE | 2021-05-21 14:07 | P.PN ---
Subjective This is a pleasant 55-year-old female past medical history significant for GERD. 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 We have been asked to see in consultation for chest pain. Patient states that over the past 2 weeks has been having a "fluttering chest pain feeling". She states it is located in the center of her chest, it is nonradiating, nonexertional. She states it comes and goes and lasts less than 5 minutes. She denies any aggravating factors or alleviating factors. She states sometimes she does feel like she has to rest. Over the past 2 days her symptoms have been getting worse so she decided to present to the emergency department. She does have associated shortness of breath. She denies lower extremity edema, fatigue, weakness, lightheadedness, syncope, nausea, or vomiting, or diaphoresis. She denies symptoms of orthopnea or PND. She denies history of coronary artery disease, [place], hypertension, stroke, diabetes, hyperlipidemia. She states that she was a former smoker and quit 2 years ago. She denies alcohol or illicit drug use. Her family history includes her parents having high blood pressure and she states that her mother was diagnosed with Takotsubo cardiomyopathy. Current home medications include Xanax when necessary, Relpax when necessary, omeprazole 20 mg nightly. EKG reveals sinus rhythm, heart rate 66, PVCs, no significant STT wave abnormalities. Chest xray mild hyperinflation, no acute cardiopulmonary process. Laboratory reviewed, Troponin negative x3, covid-19 negative 05/21/21 Patient seen and examined at bedside, no acute distress, no further chest pain. She scheduled for a stress echocardiogram stress test today. Echocardiogram revealed ejection fraction of 50-55%, mild aortic valve sclerosis, mild tricuspid regurgitation. Blood pressure 103/71, heart rate 57, afebrile, maintaining oxygen saturations 99% on room air. Lab data reviewed, CBC unremarkable, BMP, Lipid panel and TSH not resulted yet. Telemetry reviewed, patient in sinus mechanism heart rate 50 to 60s, occasional PVCs. PHYSICAL EXAMINATION CONSTITUTIONAL: No apparent distress. HEENT: No JVD. Neck supple CHEST EXAMINATION: Lungs are clear to auscultation. No chest wall tenderness is noted on palpation or with deep breathing. HEART EXAMINATION: Regular rate and rhythm. S1, S2 heard. No murmurs, gallops or rub. ABDOMEN: Soft, nontender. Positive bowel sounds. EXTREMITIES: 2+ peripheral pulses, no lower extremity edema and no calf tenderness. NEUROLOGIC EXAMINATION: Patient is awake, alert and oriented x3. ASSESSMENT Chest pain, atypical, no ischemia noted on EKG, troponin negative x 3 History of GERD PLAN Stress echocardiogram completed, read by Dr. Saleh who states the stress echocardiogram was normal. Echocardiogram completed with no acute findings. From cardiology perspective, patient can be discharged home and follow-up with Dr. Saleh in the outpatient office. Thank you kindly for this consultation. Nurse Practitioner note has been reviewed, I agree with a documented findings and plan of care. Patient was seen and examined. Objective - Vital Signs Vital signs: Vital Signs Temp 97.9 F 05/21/21 07:00 Pulse 57 L 05/21/21 07:00 Resp 16 05/21/21 07:00 BP 103/71 05/21/21 07:00 Pulse Ox 99 05/21/21 07:00 Intake & Output 05/20/21 05/21/21 05/21/21 18:59 06:59 18:59 Intake Total 240 Balance 240 Weight 72.575 kg 72.57 kg Intake: Oral 240 Other: Voiding Method Toilet Toilet # Voids 2 2 - Labs CBC & Chem 7: 05/21/21 05:56 05/20/21 08:12
--- NOTE | 2021-05-21 14:16 | P.DS ---
Providers Date of admission: 05/20/21 09:16 Expected date of discharge: 05/21/21 Attending physician: Molly Garner MD Consults: 05/20/21 09:16 Consult Physician Urgent Consulting Provider: Júnior Hall Consult Reason/Comments: cp Do you want consulting provider notified?: Yes Primary care physician: Gumaro Naylor MD Hospital Course: 55-year-old woman with no significant medical history outside of acid reflux presented with palpitations and chest heaviness. Patient says her symptoms started approximately 2 weeks ago, but as of yesterday she started to feel zenaida tional chest discomfort as well as some radiation into the left upper shoulder and down the arm which prompted her concern and her medical evaluation in the ER. Patient says that's she has had some nausea associated with the symptoms. She denies any exertional chest pain, positional chest pain, prandial relationship to the chest pain. She describes her sensation as a pressure in the center of her chest. She has never had any heart attacks before. She also reports that she has feelings as if her heart is skipping beats. She denies fevers, chills, cough, dyspnea, abdominal pain, diarrhea, constipation, dysuria, numbness/as. In the emergency room, patient was noted to be afebrile, 121/77, heart rate 60, 96% room air. EKG and telemetry demonstrated multiple PVCs, no ischemic changes to the ST-T segments. Chest pain, atypical Premature ventricular contractions Patient admitted to observation with telemetry. Seen by cardiology. Pt had multiple PVCs on telemetry. Started on metoprolol. Cardiology recommended stress echo, which was done and negative. Risk facors of CAD were reviewed and meds titrated accordingly. Pt to f/u with PCP. GERD without esophagitis Anxiety - no changes to home meds. Assessment: Gen: awake, alert HEENT: normocephalic, atraumatic, good hearing acuity, moist mucous membranes Resp: good air exchange, breathing comfortably with no accessory muscle use, clear to auscultation bilaterally without wheezes or crackles CVS: good distal perfusion x 4, regular rate and rhythm without murmurs, occasional skipped beats GI: soft, NTTP, ND, appropriate bowel sounds : no SPT, no CVAT, riojas catheter not present MSK: no pitting edema, no clubbing Neuro: non-focal, moving all extremities Psych: cooperative, euthymic mood Patient Condition at Discharge: Good Plan - Discharge Summary Discharge Rx Participant: No New Discharge Prescriptions: New Metoprolol Tartrate [Lopressor] 12.5 mg PO BID #60 tab Continue Omeprazole 20 mg PO HS Eletriptan [Relpax] 40 mg PO DAILY PRN PRN Reason: Migraine Headache ALPRAZolam [Xanax] 0.25 - 0.5 mg PO HS PRN PRN Reason: Insomnia Discharge Medication List ALPRAZolam [Xanax] 0.25 - 0.5 mg PO HS PRN 05/20/21 [History] Eletriptan [Relpax] 40 mg PO DAILY PRN 05/20/21 [History] Omeprazole 20 mg PO HS 05/20/21 [History] Metoprolol Tartrate [Lopressor] 12.5 mg PO BID #60 tab 05/21/21 [Rx] Follow up Appointment(s)/Referral(s): Trisha Moreno NPC [Family Provider] - 1-2 days Wilton Saleh MD [STAFF PHYSICIAN] - 2 Weeks Discharge Disposition: HOME SELF-CARE
[2021-05-21 14:21] LABS: African American GFR (CKD) 95.5 (60.0-200.0); Anion Gap 5.3 mmol/L (4.00-12.00); BUN/Creat Ratio 12.5 Ratio (12.00-20.00); Calcium 9.6 mg/dL (8.7-10.3); Carbon Dioxide 29.7 mmol/L (21.6-31.8); Chol/HDL Ratio 2.41; LDL Cholesterol,Calculated 81.6 mg/dL (0.0-131.0); Non-African American GFR(CKD) 82.4 (60.0-200.0); Potassium 4.7 mmol/L (3.5-5.5); VLDL Calculation 11.4 mg/dL (5.00-40.00)
[2021-05-21 15:14] VITALS: BP 118/53; PULSE 65; RESP 18; TEMP 97.5
--- NOTE | 2021-05-21 17:13 | P.STRESS ---
- Stress Test Note Stress Test Results/Findings: Exam Performed: stress echo exercise Exam Date: 05/21/21 Reason for Exam: Chest Pain Height: 5 ft 6 in Weight: 72.57 kg Protocol: Hany Stage: 4 Duration of Exercise: 10:50 Resting Heart Rate: 60 Resting Blood Pressure: 112/63 Maximum Achieved Heart Rate: 143 Maximum Achieved Blood Pressure: 192/61 85% PMHR: 139 100% PMHR: 164 METS: 12.1 Technologist Comment: Stress Test Results/Findings: This is a 55-year-old female was admitted to the hospital with chest pain. Has history of hypertension and smoking and also symptoms of palpitations. Stress data: Blood pressure at rest is 112/63 with pulse rate of 60. Baseline EKG showed sinus rhythm with [place] interval and QRS duration with mild nonspecific ST-T changes. Patient walked on the Hany protocol for 10 minutes and 50 seconds achieving a maximum heart rate of 143 with a blood pressure 169/80. EKGs during and after exercise showed occasional PVCs, but no changes suggestive of ischemia, mild J-point depression with upsloping ST segments were noted. Echo data: Baseline echo images show normal wall motion and thickening. Exer cise echo images showed augmentation of wall motion and thickening in all the segments. Final impression: #1. Stress test is felt to be inconclusive because of baseline EKG changes. Patient however did not experience any chest pain. Occasional PVCs were noted. #2. Negative stress echo.
--- NOTE | 2021-05-23 11:14 | EST ---
Stress Test Results/Findings: Exam Performed: stress echo exercise Exam Date: 05/21/21 Reason for Exam: Chest Pain Height: 5 ft 6 in Weight: 72.57 kg Protocol: Hany Stage: 4 Duration of Exercise: 10:50 Resting Heart Rate: 60 Resting Blood Pressure: 112/63 Maximum Achieved Heart Rate: 143 Maximum Achieved Blood Pressure: 192/61 85% PMHR: 139 100% PMHR: 164 METS: 12.1 Technologist Comment: Stress Test Results/Findings: This is a 55-year-old female was admitted to the hospital with chest pain. Has history of hypertension and smoking and also symptoms of palpitations. Stress data: Blood pressure at rest is 112/63 with pulse rate of 60. Baseline EKG showed sinus rhythm with DE interval and QRS duration with mild nonspecific ST-T changes. Patient walked on the Hany protocol for 10 minutes and 50 seconds achieving a maximum heart rate of 143 with a blood pressure 169/80. EKGs during and after exercise showed occasional PVCs, but no changes suggestive of ischemia, mild J-point depression with upsloping ST segments were noted. Echo data: Baseline echo images show normal wall motion and thickening. Exercise echo images showed augmentation of wall motion and thickening in all the segments. Final impression: #1. Stress test is felt to be inconclusive because of baseline EKG changes. Patient however did not experience any chest pain. Occasional PVCs were noted. #2. Negative stress echo. MANDEEP
== END 2021-05-21 15:36 | disposition home or self-care (01) ==
LOC: EC 07:40 → 6NMEDSUR 09:16
PROVIDERS: ADMIT Internal Medicine; ATTEND Internal Medicine
DX: R07.89 Other chest pain (principal); I49.3 Ventricular premature depolarization; R00.2 Palpitations; R11.0 Nausea; R06.02 Shortness of breath; Z20.822 Contact with and (suspected) exposure to COVID-19; K21.9 Gastro-esophageal reflux disease without esophagitis; I35.8 Other nonrheumatic aortic valve disorders; F41.9 Anxiety disorder, unspecified; K44.9 Diaphragmatic hernia without obstruction or gangrene; K58.9 Irritable bowel syndrome, unspecified; Z88.1 Allergy status to other antibiotic agents; Z87.891 Personal history of nicotine dependence; Z90.721 Acquired absence of ovaries, unilateral; Z90.49 Acquired absence of other specified parts of digestive tract; Z86.69 Personal history of other diseases of the nervous system and sense organs; Z86.14 Personal history of Methicillin resistant Staphylococcus aureus infection; Z90.710 Acquired absence of both cervix and uterus; Z82.5 Family history of asthma and other chronic lower respiratory diseases; Z82.49 Family history of ischemic heart disease and other diseases of the circulatory system
CPT/HCPCS: 93005 ×2; 99285; 36415; 93306; 93351; 80061; 80053; 80048; 84443; 83735 ×2; 84484; 85025 ×2; 85610; 85730; 83036; 87635; 71046; G0378 ×2; Q9950

== ENCOUNTER → 2021-06-04 | Outpatient (CLI) | payer MEDICAID ==
--- NOTE | 2021-06-06 09:15 | MM ---
Reason for exam: screening (asymptomatic). Last mammogram was performed 1 year and 1 month ago. History: Patient is postmenopausal and has history of high-risk lesion on a previous biopsy at age 47. Family history of breast cancer in paternal aunt at age 50 and breast cancer in paternal grandmother at age 50. High risk US LT VAD breast biopsy of the left breast, April 27, 2013. Benign left breast aspiration of the left breast, March 2012. Took hormonal contraceptives for 15 years beginning at age 17. Physical Findings: A clinical breast exam by your physician is recommended on an annual basis and results should be correlated with mammographic findings. MG 3D Screening Mammo W/Cad Bilateral CC and MLO view(s) were taken. Prior study comparison: May 03, 2020, bilateral MG 3d screening mammo w/cad. April 13, 2019, bilateral MG 3d screening mammo w/cad. The breast tissue is heterogeneously dense. This may lower the sensitivity of mammography. ASSESSMENT: Negative, BI-RAD 1 RECOMMENDATION: Routine screening mammogram of both breasts in 1 year.
== END | disposition home or self-care (01) ==
LOC: RADMAMWWP 13:49
PROVIDERS: ATTEND Obstetrics & Gynecology
DX: Z12.31 Encounter for screening mammogram for malignant neoplasm of breast (principal); Z80.3 Family history of malignant neoplasm of breast; Z78.0 Asymptomatic menopausal state
CPT/HCPCS: 77063; 77067

== ENCOUNTER → 2021-08-18 | Outpatient (CLI) | payer MEDICAID ==
--- NOTE | 2021-08-19 03:35 | MR ---
EXAMINATION TYPE: MR foot LT wo/w con DATE OF EXAM: 08/18/2021 COMPARISON: None HISTORY: Soft tissue mass plantar aspect, base of 1st toe. CONTRAST: Standard multiplanar, multisequence MRI departmental protocol utilizing 7 mL intravenous Gadavist nati olinium contrast. The metatarsals appear intact. The toes appear intact. I see no focal bone destruction. The bones of the midfoot appear intact. The Achilles tendon is intact. Plantar fascia appears normal. The medial a nd lateral flexor tendons appear intact. On the STIR images there is a high signal subcutaneous mass on the plantar aspect of the first metata rsal head. This measures 22 x 12 mm. There is a small joint effusion at the first MP joint. I see no focal bone destruction. This lesion has low signal on T1 and shows a rim of enhancement with contrast . Lesion has high signal on T2 images and consistent with fluid. IMPRESSION: There is fluid containing thick walled mass on the plantar aspect of the first metatarsal head with w all enhancement. Small joint effusion at the first MP joint. This mass could be a synovial cyst.
== END | disposition home or self-care (01) ==
LOC: RADMRIMAIN 08:46
PROVIDERS: ATTEND Podiatrist Foot & Ankle Surgery
DX: R22.41 Localized swelling, mass and lump, right lower limb (principal)
CPT/HCPCS: 73720; A9585

== ENCOUNTER → 2022-05-28 | Outpatient (CLI) | payer MEDICAID ==
[2022-05-28 10:31] LABS: Basophils # (A) 0.05 X 10*3/uL (0.00-0.10); Basophils % (A) 0.6 %; Eosinophils # (A) 0.14 X 10*3/uL (0.04-0.35); Eosinophils % (A) 1.8 %; HCT 42.1 % (37.2-46.3); HGB 13.9 g/dL (12.0-15.0); Immature Grans, Automated 0.3 %; Lymphocytes # (A) 2.17 X 10*3/uL (0.90-5.00); Lymphocytes % (A) 27.6 %; Mean Platelet Volume 10.7 fL (9.5-12.2); Monocytes # (A) 0.49 X 10*3/uL (0.20-1.00); Monocytes % (A) 6.2 %; NRBC Per 100 WBC 0 /100 WBCS (0.0-0.0); Neutrophils # (A) 4.98 X 10*3/uL (1.80-7.70); Neutrophils % (A) 63.5 %; Platelet Count 270 X 10*3/uL (140-440); RBC 4.48 X 10*6/uL (4.10-5.20); RDW 13.3 % (11.5-14.5); WBC 7.85 X 10*3/uL (4.50-10.00)
[2022-05-28 11:06] LABS: ALT 18 U/L (8-44); AST 18 U/L (13-35); African American GFR (CKD) 82.3 (60.0-200.0); Albumin 4.8 g/dL (3.8-4.9); Albumin/Globulin Ratio 2.53 (1.60-3.17); Alkaline Phosphatase 70 U/L (41-126); BUN/Creat Ratio 14.33 Ratio (12.00-20.00); Blood Urea Nitrogen 12.9 mg/dL (9.0-27.0); Calcium 9.7 mg/dL (8.7-10.3); Carbon Dioxide 26.6 mmol/L (20.0-27.5); Chloride 105 mmol/L (96-109); Chol/HDL Ratio 2.57 Ratio; Globulin 1.9 g/dL (1.6-3.3); Glucose 91 mg/dL (70-110); LDL Cholesterol,Calculated 91.7 mg/dL (0.0-131.0); Potassium 4.9 mmol/L (3.5-5.5); Sodium 142 mmol/L (135-145); Total Protein 6.7 g/dL (6.2-8.2); VLDL Calculation 13.44 mg/dL (5.00-40.00)
== END | disposition home or self-care (01) ==
LOC: LABWHC1 06:57
PROVIDERS: ATTEND Internal Medicine
DX: E55.9 Vitamin D deficiency, unspecified (principal); R07.89 Other chest pain
CPT/HCPCS: 36415; 80053; 80061; 82306; 84443; 85025

== ENCOUNTER → 2022-06-03 | Outpatient (CLI) | payer MEDICAID ==
[2022-06-03 11:11] LABS: Prolactin 6.2 ng/mL (2.800-29.200); T4, Free (Free Thyroxine) 1.27 ng/dL (0.800-1.800)
== END | disposition home or self-care (01) ==
LOC: LABWHC1 07:04
PROVIDERS: ATTEND Obstetrics & Gynecology
DX: N64.52 Nipple discharge (principal)
CPT/HCPCS: 36415; 84146; 84439; 84443

== ENCOUNTER → 2022-06-09 | Outpatient (CLI) | payer MEDICAID ==
--- NOTE | 2022-06-10 08:08 | CA ---
Stress Echo Report Faina Richardson Age: 57 Gender: F : 1965 Exam Date: 06/09/2022 10:20 Exam Location: [facility] Ht (in): 66 Wt (lb): 150 Ordering Physician: Gumaro Naylor MD Referring Physician: Gumaro Naylor MD Senior Radiation Therapist: Michelle Alvarez RDCS Technologist Procedure CPT: Indication: R07.89 chest pressure ICD-9 Codes: Rhythm: Patient History: FAMILY HX OF HEART DISEASE, FORMER SMOKER 0.25 X 35 YEARS, QUIT 2 YEARS AGO. Cardiac Medications: BIOTIN, MULTIVITAMIN, VITAMIN C, VITAMIN D3, GINKO BILBOA, ZOLOFT, OMEPRAZOLE Medications in past 24 hours: Contrast: Stress Results Protocol: Hany Total dose(mL): Exercise Duration (min:sec): Max ST Depression (mm): Angina Score: Caba Score: METS: 12.3 Resting HR: 67 Resting BP: 107 / 64 Peak HR: 141 Peak BP: 181 / 73 Max Predicted HR: 162 87 % Max Predicted HR Target HR: 138 Double Product: [id number] Stress Summary: BP Response: Reason for Termination: Cardiac Symptoms: ECG Analysis Resting ECG: Stress ECG: Arrhythmia: Echo Analysis Resting Echo: Peak Echo Analysis: MEASUREMENTS (Male/Female) Normal Values CONCLUSIONS Patient underwent exercise stress echo with a Hany protocol treadmill stress test. Patient exercised into Stage 4 for a total of 12 minutes. Patient's maximum heart rate was 141 which represented 87 % age-predicted maximum heart rate. Stress EKG portion: At baseline patient's EKG showed normal sinus rhythm, normal axis, mild 0.[address] depression in the inferior and lateral leads with occasional PVCs. At peak exercise, EKG showed mild accentuation of baseline EKG abnormalities. Stress echo portion: 2-D echocardiogram was performed in the parasternal long, personal short, apical 2 and apical four-chamber views at rest, peak exercise and in recovery. At baseline, echocardiogram showed left ventricular ejection fraction 55 % without wall motion abnormalities. With peak exercise, echocardiogram shows improvement in left ventricular ejection fraction, increase contractility, decrease in left ventricular end systolic dimension without wall motion abnormalities consistent with a normal response to exercise. Conclusions: 1. Normal echo response to exercise without evidence of inducible ischemia. 2. Nonspecific EKG portion secondary baseline EKG abnormalities 3. Excellent exercise capacity. 4. Normal left ventricular ejection fraction 55% Dr. Sean Stewart DO (Electronically Signed) Final Date: 10 June 2022 08:07
== END | disposition home or self-care (01) ==
LOC: RADNMMAIN 09:47
PROVIDERS: ATTEND Internal Medicine
DX: R94.31 Abnormal electrocardiogram [ECG] [EKG] (principal)
CPT/HCPCS: 93351

== ENCOUNTER → 2022-06-30 | Outpatient (CLI) | payer MEDICAID ==
--- NOTE | 2022-06-30 16:30 | BD ---
EXAMINATION TYPE: Axial Bone Density DATE OF EXAM: 06/30/2022 COMPARISON: NONE CLINICAL HISTORY: 57 year old Female. ICD-10 CODE: M85.80 OTH DISRD OF BONE DENSITY AND STRUCTURE Height: 66 Weight: 153.9 FRAX RISK QUESTIONS: Alcohol (3 or more units per day): NO Family History (Parent hip fracture): no Glucocorticoids (More than 3mos): no (Ex: prednisone, prednisolone, methylprednisolone, dexamethasone, and hydrocortisone). History of Fracture in Adulthood: no Secondary Osteoporosis: 1. Type 1 Diabetes: no 2. Hyperthyroidism: no 3. Menopause before 45: no 4. Malnutrition: no 5. Chronic liver disease: no Rheumatoid Arthritis: no Current Tobacco Use: yes RISK FACTORS HISTORY OF: Surgery to Spine/Hip(right/left)/Wrist (right/left): no Family History of Osteoporosis: yes Active: yes Diet low in dairy products/other sources of calcium: yes Postmenopausal woman: yes If Premenopausal, do you have irregular periods: Take estrogen and/or progesterone medications: yes How lon years Lost more than 2 inches in height since high school: no MEDICATIONS: Additional History: EXAM MEASUREMENTS: Bone mineral densitometry was performed using the [employer]. Bone mineral density as measured about the Lumbar spine is: ----- L1-L4(G/cm2): 1.001 T Score Values are as follows: ----- L1: -1.3 ----- L2: -1.2 ----- L3: -1.4 ----- L4: -2.1 ----- L1-L4: -1.5 Bone mineral density : baseline Bone mineral density about the R hip (g/cm2): 0.772 Bone mineral density about the L hip (g/cm2): 0.771 T Score values are as follows: -----R Neck: -1.9 -----L Neck: -1.9 -----R Total: -1.9 -----L Total: -1.8 Bone mineral density : baseline FRAX%s: The graph provided illustrates a 9.8% chance for a major osteoporotic fx and a 1.8% chance fo r the hips probability for fx in 10 years time. IMPRESSION: Osteopenia (T Score between -2.5 and -1). There is slightly increased risk of fracture and the patient may be considered for treatment. Re-Screen 2-5 years. NOTE: T-SCORE=SD OF THE YOUNG ADULT MEAN.
--- NOTE | 2022-07-01 17:04 | MM ---
Reason for Exam: Screening (asymptomatic). Last mammogram was performed 1 year(s) and 1 month(s) ago. Patient History: Menarche at age 12. First Full-Term at age 27. Left ovary removed at age 45. Hysterectomy at age 45. Postmenopausal. Currently using Estrogen, starting at age 52. Hormonal Contraceptives for 5 years, 1 month, from age 17 until age 22. 03/2012, Benign Cyst Aspiration on the left side. 04/27/2013, High risk Core Biopsy on the left side. Paternal grandmother had breast cancer, age 50. Paternal aunt had breast cancer, age 50. Risk Values: Caitlin 5 year model risk: 1.8%. NCI Lifetime model risk: 10.0%. Prior Study Comparison: 04/13/2019 Bilateral Screening Mammogram, [facility]. 05/03/2020 Bilateral Screening Mammogram, [facility]. 06/04/2021 Bilateral Screening Mammogram, [facility]. Tissue Density: The breast tissue is heterogeneously dense. This may lower the sensitivity of mammography. Findings: Analyzed By CAD. Benign bilateral oil cyst calcifications. Global asymmetry posterior superior left and low view unchanged. No significant change from prior exams. Overall Assessment: Benign, BI-RAD 2 Management: Screening Mammogram of both breasts in 1 year. 1. Patient should continue monthly self breast exams. 2. A clinical breast exam by your physician is recommended on an annual basis. 3. This exam should not preclude additional follow-up of suspicious palpable abnormalities. Electronically signed and approved by: Ana De La Garza M.D. Radiologist
== END | disposition home or self-care (01) ==
LOC: RADMAMWWP 13:55
PROVIDERS: ATTEND Obstetrics & Gynecology
DX: Z12.31 Encounter for screening mammogram for malignant neoplasm of breast (principal); Z80.3 Family history of malignant neoplasm of breast; Z78.0 Asymptomatic menopausal state
CPT/HCPCS: 77063; 77067; 77080

== ENCOUNTER → 2022-07-29 | Outpatient (CLI) | payer MEDICAID ==
--- NOTE | 2022-07-29 11:16 | CT ---
EXAMINATION TYPE: CT soft tissue neck wo/w con DATE OF EXAM: 07/29/2022 COMPARISON: None HISTORY: Localized swelling, mass and lump, neck. Incidental finding from LDCT (lung) CT DLP: 744 mGycm CONTRAST: Patient injected with 70 ml mL of Isovue 300. TECHNIQUE: Axial images at 3 mm thick sections. Reconstructed images in the coronal plane and sagitt al plane are reviewed. FINDINGS: Limited CT sections are obtained the lung apices. The lung apices appear clear. CT neck: The torus tubarius and fossa of Rosenmuller are normal. Associate Merchant spaces are normal. Para nasal sinuses and mastoid air cells are clear. Note is made to left septal deviation posteriorly. Feliciano e right septal deviation may be present anteriorly. Parotid glands appear normal and symmetrical. Submandibular glands are normal. Parapharyngeal space s are normal. No suspicious adenopathy is evident. There are some scattered small lymph nodes in the submandibular regions bilaterally. The hypopharynx appears within normal limits. Vocal cord level appear symmetrical. There is a 0.5 cm hypodensity within the left lobe thyroid. There is an enlarged soft tissue density in the posterior right paratracheal region posterior to the inferior pole right lobe thyroid measuring 1.7 x 2.2 x 2.8 cm. This has more central hypodensity. Lym phadenopathy could be considered. This is below the hyoid bone. Thyroglossal duct cyst could be cons idered. This measures -4 Hounsfield units correlates with the finding identified on the low dose CT lung screening. This does have some punctate calcification peripherally and potentially can arise fro m the posterior right lobe thyroid. Ultrasound may provide additional information. Osseous structures are normal. IMPRESSIONS: 1. Complex cystlike structure posterior to the right thyroid lobe measuring 1.7 x 2.2 x 2.8 cm with s ome peripheral calcification. Thyroid cysts and thyroglossal duct cyst could be considered. Consider ultrasound for additional workup.
== END | disposition home or self-care (01) ==
LOC: RADCTMAIN 07:31
PROVIDERS: ATTEND Internal Medicine
DX: R22.1 Localized swelling, mass and lump, neck (principal)
CPT/HCPCS: 70492; Q9967

== ENCOUNTER → 2023-07-06 | Outpatient (CLI) | payer MEDICAID ==
--- NOTE | 2023-07-06 07:44 | MM ---
Reason for Exam: Screening (asymptomatic). Last screening mammogram was performed 12 month(s) ago. Patient History: Menarche at age 12. First Full-Term at age 27. Left ovary removed at age 45. Hysterectomy at age 45. Postmenopausal. Currently using Estrogen, starting at age 52. Hormonal Contraceptives for 5 years, 1 month, from age 17 until age 22. 03/2012, Benign Cyst Aspiration on the left side. 04/27/2013, High risk Core Biopsy on the left side. Paternal grandmother had breast cancer, age 50. Paternal aunt had breast cancer, age 50. Risk Values: Caitlin 5 year model risk: 1.8%. NCI Lifetime model risk: 9.8%. Prior Study Comparison: 05/03/2020 Bilateral Screening Mammogram, [facility]. 06/04/2021 Bilateral Screening Mammogram, [facility]. 06/30/2022 Bilateral MG 3D screening mammo w/cad, [facility]. Tissue Density: The breast tissue is heterogeneously dense. This may lower the sensitivity of mammography. Findings: Analyzed By CAD. Benign-appearing calcifications bilaterally. There is no suspicious group of microcalcifications or new suspicious mass in either breast. Overall Assessment: Negative, BI-RAD 1 Management: Screening Mammogram of both breasts in [address] [facility] will attempt to contact patient to return for supplemental views and ultrasound if indicated. Patient should continue monthly self-breast exams. A clinical breast exam by your physician is recommended on an annual basis. This exam should not preclude additional follow-up of suspicious palpable abnormalities. Note on Caitlin scores and lifetime risk: 1. A Caitlin score greater than 3% is considered moderate risk. If this is the case, consider specialist referral to assess eligibility for a risk reducing agent. 2. If overall lifetime risk for the development of breast cancer is 20% or higher, the patient may qualify for future screening with alternating mammogram and breast MRI. Electronically signed and approved by: Asher Bui DO
== END | disposition home or self-care (01) ==
LOC: RADMAMWWP 07:04
PROVIDERS: ATTEND Internal Medicine
DX: Z12.31 Encounter for screening mammogram for malignant neoplasm of breast (principal); Z78.0 Asymptomatic menopausal state; Z80.3 Family history of malignant neoplasm of breast
CPT/HCPCS: 77063; 77067

== ENCOUNTER → 2023-07-21 | Outpatient (CLI) | payer MEDICAID ==
[2023-07-21 11:30] LABS: Basophils # (A) 0.05 X 10*3/uL (0.00-0.10); Basophils % (A) 0.6 %; Eosinophils # (A) 0.15 X 10*3/uL (0.04-0.35); Eosinophils % (A) 1.9 %; HGB 13.9 d/dL (12.0-15.0); Lymphocytes # (A) 2.32 X 10*3/uL (0.90-5.00); Lymphocytes % (A) 28.8 %; MCH 31.4 pg (27.0-32.0); MCHC 33.1 d/dL (32.0-37.0); Mean Platelet Volume 10.3 FL (9.5-12.2); Monocytes % (A) 6.2 %; NRBC Per 100 WBC 0 X 10*3/uL (0.00-0.01); Neutrophils # (A) 5.02 X 10*3/uL (1.80-7.70); Neutrophils % (A) 62.4 %; Platelet Count 285 X 10*3/uL (140-440); RBC 4.42 X 10*6/uL (4.10-5.20); RDW 13.5 % (11.5-14.5); WBC 8.05 X 10*3/uL (4.50-10.00)
[2023-07-21 12:50] LABS: Chol/HDL Ratio 2.51 Ratio; LDL Cholesterol,Calculated 89.1 mg/dL (0.0-131.0); Magnesium 1.9 mg/dL (1.5-2.4); VLDL Calculation 16.72 mg/dL (5.00-40.00)
[2023-07-21 12:51] LABS: ALT 19 U/L (8-44); AST 20 U/L (13-35); Albumin 4.9 d/dL (3.8-4.9); Albumin/Globulin Ratio 2.72 Ratio (1.60-3.17); Alkaline Phosphatase 65 U/L (41-126); BUN/Creat Ratio 14.12 Ratio (12.00-20.00); Blood Urea Nitrogen 11.3 mg/dL (9.0-27.0); Calcium 9.8 mg/dL (8.7-10.3); Carbon Dioxide 26.7 mmol/L (21.6-31.8); Chloride 104 mmol/L (96-109); Globulin 1.8 d/dL (1.6-3.3); Glucose 93 mg/dL (70-110); Potassium 4.3 mmol/L (3.5-5.5); Sodium 141 mmol/L (135-145); Total Bilirubin 0.5 mg/dL (0.3-1.2); Total Protein 6.7 d/dL (6.2-8.2)
== END | disposition home or self-care (01) ==
LOC: LABWHC1 07:33
PROVIDERS: ATTEND Internal Medicine
DX: Z00.00 Encounter for general adult medical examination without abnormal findings (principal); Z11.59 Encounter for screening for other viral diseases; G43.009 Migraine without aura, not intractable, without status migrainosus; E55.9 Vitamin D deficiency, unspecified
CPT/HCPCS: 36415; 80053; 80061; 82306; 82607; 82746; 83735; 84443; 85025; 86803

== ENCOUNTER → 2023-10-19 | Outpatient (CLI) | payer MEDICAID ==
--- NOTE | 2023-10-19 09:24 | CTL ---
EXAMINATION TYPE: CT Low Dose Lung DATE OF EXAM ORDERED: 10/19/2023 HISTORY: halfway tobacco use. Lung cancer screening CT DLP: 69.[address] CTDI: 1.9 mGy Automated exposure control for dose reduction was used. SCREENING VISIT: First after baseline COMPARISON: Prior study July 15, 2022 TECHNIQUE: Low dose computed tomography scan was performed through the chest at 1 mm thick sections a nd reconstructed images in multiple planes at 1 mm and [address] DIAGNOSTIC QUALITY: Satisfactory FINDINGS: LUNG NODULES: Present, detailed below: A few scattered small nodules are redemonstrated. There is stable 3 mm subpleural calcified nodule on axial image 122 posterior left lung. Stable 2 to 3 mm right upper lobe peripheral nodule axial image 97. No new or enlarging greater than 5 mm noncalcified pulmonary nodules. LUNGS: COPD: Severity: Mild Fibrosis: Severity: None Lymph nodes: None Other findings: None RIGHT PLEURAL SPACE: Effusion: None Calcification: None Thickening: None Pneumothorax: None LEFT PLEURAL SPACE: Effusion: None Calcification: None Thickening: None Pneumothorax: None HEART: Heart Size: Normal Coronary Calcification: None Pericardial Effusion: None OTHER FINDINGS: Upper abdomen: Cholecystectomy clips are present. Persistent 4.1 cm thin-walled cyst in the right hep atic lobe axial image 57 series 5 and adjacent smaller round hypodense lesion. Bony thorax: None Supraclavicular region: Subcentimeter low dense left thyroid nodule axial image 3 series 5 redemonstr ated. Stable 1.5 cm low dense lesion posterior to the lower pole right thyroid just right of the proximal e sophagus axial image 4 could reflect enlarged lymph node. Other: None IMPRESSION: No new or enlarging greater than 5 mm noncalcified pulmonary nodules. CT LUNG RAD AND CT CHEST RECOMMENDATION: Lung-Rad 2 Benign Appearance or Behavior: Continue annual sc reening with LDCT in 12 months. S Modifier (other clinically significant findings): No suspicious new findings.
== END | disposition home or self-care (01) ==
LOC: RADCTMAIN 07:26
PROVIDERS: ATTEND Internal Medicine
DX: Z12.2 Encounter for screening for malignant neoplasm of respiratory organs (principal); F17.210 Nicotine dependence, cigarettes, uncomplicated
CPT/HCPCS: 71271

== ENCOUNTER → 2024-07-19 | Outpatient (CLI) | payer OTHER ==
[2024-07-19 10:20] LABS: HCT 42.5 % (37.2-46.3); HGB 14.6 g/dL (12.0-15.0); MCH 32.3 pg (27.0-32.0); MCHC 34.4 g/dL (32.0-37.0); Mean Platelet Volume 10.1 FL (9.5-12.2); NRBC Per 100 WBC 0 X 10*3/uL (0.00-0.01); Platelet Count 273 X 10*3/uL (140-440); RBC 4.52 X 10*6/uL (4.10-5.20); RDW 13.1 % (11.5-14.5); WBC 8.07 X 10*3/uL (4.50-10.00)
[2024-07-19 10:34] LABS: BUN/Creat Ratio 21.38 Ratio (12.00-20.00); Blood Urea Nitrogen 17.1 mg/dL (9.0-27.0); Carbon Dioxide 25.8 mmol/L (21.6-31.8); Chloride 103 mmol/L (96-109); Chol/HDL Ratio 2.61 Ratio; Glucose 94 mg/dL (70-110); LDL Cholesterol,Calculated 92.2 mg/dL (0.0-131.0); Magnesium 2.1 mg/dL (1.5-2.4); Potassium 4.6 mmol/L (3.5-5.5); Sodium 140 mmol/L (135-145); VLDL Calculation 18.08 mg/dL (5.00-40.00)
[2024-07-19 10:35] LABS: ALT 14 U/L (8-44); AST 16 U/L (13-35); Albumin 4.6 g/dL (3.8-4.9); Albumin/Globulin Ratio 2.42 Ratio (1.60-3.17); Alkaline Phosphatase 80 U/L (41-126); Globulin 1.9 g/dL (1.6-3.3); Total Bilirubin 0.4 mg/dL (0.3-1.2); Total Protein 6.5 g/dL (6.2-8.2)
== END | disposition home or self-care (01) ==
LOC: LABWHC1 07:03
PROVIDERS: ATTEND Internal Medicine
DX: Z00.00 Encounter for general adult medical examination without abnormal findings (principal)
CPT/HCPCS: 36415; 80053; 80061; 83735; 84443; 85027

== ENCOUNTER → 2024-08-05 | Outpatient (CLI) | payer OTHER ==
--- NOTE | 2024-08-08 08:34 | MM ---
Reason for Exam: Screening (asymptomatic). Last mammogram was performed 1 year(s) and 1 month(s) ago. Patient History: Menarche at age 12. First Full-Term at age 27. Left ovary removed at age 45. Hysterectomy at age 45. Postmenopausal. Estrogen, starting at age 52 for 3 years. Hormonal Contraceptives for 5 years, 1 month, from age 17 until age 22. 03/2012, Benign Cyst Aspiration on the left side. 04/27/2013, High risk Core Biopsy on the left side. Paternal grandmother had breast cancer, age 50. Paternal aunt had breast cancer, age 50. Risk Values: Caitlin 5 year model risk: 1.9%. NCI Lifetime model risk: 9.5%. Prior Study Comparison: 06/04/2021 Bilateral Screening Mammogram, [facility]. 06/30/2022 Bilateral MG 3D screening mammo w/cad, [facility]. 07/06/2023 Bilateral MG 3D screening mammo w/cad, [facility]. Tissue Density: The breasts are heterogeneously dense, which may obscure small masses. Findings: Analyzed By CAD. Right breast: There is no suspicious group of microcalcifications or new suspicious mass. Left breast: There is no suspicious group of microcalcifications or new suspicious mass. Overall Assessment: Negative, BI-RAD 1 Management: Screening Mammogram of both breasts in [address] [facility] will attempt to contact patient to return for supplemental views and ultrasound if indicated. Patient should continue monthly self-breast exams. A clinical breast exam by your physician is recommended on an annual basis. This exam should not preclude additional follow-up of suspicious palpable abnormalities. Note on Caitlin scores and lifetime risk: 1. A Caitlin score greater than 3% is considered moderate risk. If this is the case, consider specialist referral to assess eligibility for a risk reducing agent. 2. If overall lifetime risk for the development of breast cancer is 20% or higher, the patient may qualify for future screening with alternating mammogram and breast MRI. [facility], , 08/08/2024 8:31 AM. Electronically signed and approved by: Asher Bui DO
== END | disposition home or self-care (01) ==
LOC: RADMAMWWP 11:14
PROVIDERS: ATTEND Internal Medicine
CPT/HCPCS: 77063; 77067

== ENCOUNTER → 2024-11-24 | Outpatient (CLI) | payer OTHER ==
--- NOTE | 2024-11-24 12:52 | CTL ---
Addendum for incorrect pulmonary nodule reported measurement. Report states that there is a left lowe r lobe 2.1 cm pulmonary nodule (series 6, image 46) however it should state 2.1 mm pulmonary nodule. [facility], , 11/24/2024 2:53 PM
== END | disposition home or self-care (01) ==
LOC: RADCTMAIN 07:58
PROVIDERS: ATTEND Internal Medicine
DX: Z12.2 Encounter for screening for malignant neoplasm of respiratory organs (principal); F17.210 Nicotine dependence, cigarettes, uncomplicated; R91.8 Other nonspecific abnormal finding of lung field
CPT/HCPCS: 71271

== ENCOUNTER → 2025-05-10 | Outpatient (CLI) | payer OTHER ==
[2025-05-10 10:21] LABS: Basophils # (A) 0.05 X 10*3/uL (0.00-0.10); Basophils % (A) 0.6 %; Eosinophils # (A) 0.18 X 10*3/uL (0.04-0.35); Eosinophils % (A) 2.2 %; HCT 43.3 % (37.2-46.3); HGB 14.4 g/dL (12.0-15.0); Lymphocytes # (A) 2.61 X 10*3/uL (0.90-5.00); Lymphocytes % (A) 32.1 %; MCH 31.1 pg (27.0-32.0); MCHC 33.3 g/dL (32.0-37.0); MCV 93.5 FL (80.0-97.0); Mean Platelet Volume 10.1 FL (9.5-12.2); Monocytes # (A) 0.59 X 10*3/uL (0.20-1.00); Monocytes % (A) 7.3 %; NRBC Per 100 WBC 0 X 10*3/uL (0.00-0.01); Neutrophils # (A) 4.68 X 10*3/uL (1.80-7.70); Neutrophils % (A) 57.6 %; Platelet Count 291 X 10*3/uL (140-440); RBC 4.63 X 10*6/uL (4.10-5.20); RDW 13.2 % (11.5-14.5); WBC 8.13 X 10*3/uL (4.50-10.00)
[2025-05-10 10:46] LABS: ALT 14 U/L (8-44); AST 17 U/L (13-35); Albumin 4.6 g/dL (3.8-4.9); Albumin/Globulin Ratio 2.42 Ratio (1.60-3.17); Alkaline Phosphatase 81 U/L (41-126); BUN/Creat Ratio 14.62 Ratio (12.00-20.00); Blood Urea Nitrogen 11.7 mg/dL (9.0-27.0); Calcium 9.8 mg/dL (8.7-10.3); Carbon Dioxide 26.9 mmol/L (21.6-31.8); Chloride 104 mmol/L (96-109); Chol/HDL Ratio 2.62 Ratio; Globulin 1.9 g/dL (1.6-3.3); Glucose 93 mg/dL (70-110); LDL Cholesterol,Calculated 91.6 mg/dL (0.0-131.0); Potassium 5.3 mmol/L (3.5-5.5); Sodium 139 mmol/L (135-145); Total Bilirubin 0.5 mg/dL (0.3-1.2); Total Protein 6.5 g/dL (6.2-8.2)
== END | disposition home or self-care (01) ==
LOC: LABWHC1 07:13
PROVIDERS: ATTEND Internal Medicine
DX: Z00.00 Encounter for general adult medical examination without abnormal findings (principal)
CPT/HCPCS: 36415; 80053; 80061; 84443; 85025